=== PATIENT | female | born 1960 | race Caucasian/White ===

== ENCOUNTER 2020-08-08 09:40 | Inpatient (IN) | payer BC ==
[~2020-08-08] VITALS: Ht 167.6 cm; Wt 81.2 kg
[~2020-08-08 09:40] MED LIST: ACETAMINOPHEN 500 MG TAB PO PRN; ALEN70TA74 PO; BUPIVACAINE 0.25% INJ 50ML VIAL ONE; LIDOCAINE W/ EPINEPHRINE 1% 20ML VIAL ONE; METHYLENE BLUE 0.5% 5MG/ML 10ml AMP IV ONE; MORPHINE SULF INJ 2 MG/ML SYRINGE 1ML IV PRN; MORPHINE SULFATE 4 MG/ML SYR/VIAL IV PRN; NITROGLYCERIN 0.4 MG SL TAB SL PRN; ONDANSETRON HCL 4 MG/2 ML VIAL IV PRN; PROG1CAP2 PO; THYR30TA PO; ceFAZolin 1GM/50ML 50 ML IV ONE
[2020-08-08] MEDS ORDERED: HYDROmorphone HCL 2 MG/ML VL ONE (10:39)
[2020-08-08] MEDS ORDERED: MIDAZOLAM HCL 1MG/1ML-2 ML VIAL ONE (10:39)
[2020-08-08] MEDS ORDERED: fentaNYL CITRATE 100 MCG/2 ML VL ONE (10:39)
[2020-08-08] MEDS ORDERED: ONDANSETRON HCL 4 MG/2 ML VIAL ONE (10:40)
[2020-08-08] MEDS ORDERED: LIDOCAINE 2% (LOCAL ANESTH.) PF 5ml SDV ONE (10:40)
[2020-08-08] MEDS ORDERED: ROCURONIUM 10MG/ML 10ML VIAL IV ONE (10:40)
[2020-08-08] MEDS ORDERED: DexAMETHasone SOD PHOS 10MG/1ML VIAL INJ ONE (10:40)
[2020-08-08] MEDS ORDERED: GLYCOPYRROLATE 0.2 MG/ML 1ML VIAL ONE (10:40)
[2020-08-08] MEDS ORDERED: KETOROLAC TROMETH 30 MG/ML 1ML VIAL ONE (10:40)
[2020-08-08] MEDS ORDERED: SUCCINYLCHOLINE CHLORIDE 20 MG/ML 10ML VIAL IV ONE (10:49)
[2020-08-08] MEDS ORDERED: FAMOTIDINE (10MG/ML) 2ML VL IV ONE (10:49)
[2020-08-08] MEDS ORDERED: PROPOFOL 10 MG/ML 20 ML IV ONE (11:56)
[2020-08-08] MEDS ORDERED: HYDROmorphone HCL 2 MG/ML VL IV PRN (14:00)
[2020-08-08] MEDS ORDERED: ONDANSETRON HCL 4 MG/2 ML VIAL IV PRN (14:00)
[2020-08-08] MEDS: THYROID 60 MG TAB PO SCH (15:06)
[2020-08-08] MEDS: SODIUM CHLORIDE 0.9% 1,000 ML IV SCH ×3 (15:06→23:45)
[2020-08-08 17:00] VITALS: BP 128/63
[2020-08-08 20:00] VITALS: BP 105/59
[2020-08-08 22:00] VITALS: BP 105/59
[2020-08-09] MEDS: HYDROcodone-ACET 10/325MG TAB PO PRN ×3 (04:00→10:22)
[2020-08-09 05:00] VITALS: BP 99/37
[2020-08-09] MEDS: SODIUM CHLORIDE 0.9% 1,000 ML IV SCH (07:45)
[2020-08-09 08:00] VITALS: BP 98/70
[2020-08-09 09:00] VITALS: BP 98/70
[2020-08-09] MEDS: THYROID 60 MG TAB PO SCH (10:22)
[2020-08-09 12:23] VITALS: BP 127/54
[2020-08-09 13:00] VITALS: BP 127/54
== END 2020-08-09 14:10 | disposition home or self-care (01) | DRG 743 ==
LOC: SUR 09:40 → OVERFLOW 14:28 → CENTRAL 15:59
PROVIDERS: ADMIT Obstetrics & Gynecology; ATTEND Obstetrics & Gynecology
PROC: 0UT74ZZ Resection of Bilateral Fallopian Tubes, Percutaneous Endoscopic Approach (ICD-10-PCS; 2020-08-08)
PROC: 0UT24ZZ Resection of Bilateral Ovaries, Percutaneous Endoscopic Approach (ICD-10-PCS; 2020-08-08)
PROC: 0DQH4ZZ Repair Cecum, Percutaneous Endoscopic Approach (ICD-10-PCS; 2020-08-08)
PROC: 8E0W4CZ Robotic Assisted Procedure of Trunk Region, Percutaneous Endoscopic Approach (ICD-10-PCS; 2020-08-08)
PROC: 0UT94ZL Resection of Uterus, Supracervical, Percutaneous Endoscopic Approach (ICD-10-PCS; principal; 2020-08-08 10:56)
DX: N81.4 Uterovaginal prolapse, unspecified (principal); N73.6 Female pelvic peritoneal adhesions (postinfective); Z20.822 Contact with and (suspected) exposure to COVID-19
CPT/HCPCS: 86850; 86900; 86901; 87081; G0378; J0330; J0690; J1100; J1885; J2001; J2250; J2405; J2704; J3490